=== PATIENT | male | born 1990 | race Native Hawaiian/Other Pacific Islander ===

== ENCOUNTER 2023-04-24 11:19 | Emergency (ER) | payer OTHER ==
[~2023-04-24] VITALS: Ht 185.4 cm; Wt 119.8 kg
[2023-04-24 11:40] VITALS: BP 134/86; TEMP 98.7
[2023-04-27] MEDS ORDERED: CLINDAMYCIN HY150 MG PO (06:36)
== END 2023-04-24 11:40 | disposition home or self-care (01) ==
LOC: ED 11:19
DX: L72.3 Sebaceous cyst (principal)
CPT/HCPCS: 99282

== ENCOUNTER 2023-04-26 21:16 | Emergency (ER) | payer OTHER ==
[~2023-04-26] VITALS: Ht 185.4 cm; Wt 120.2 kg
[2023-04-26 22:32] LABS: PLATELET COUNT 373 K/uL (142-355)
[2023-04-26 23:20] VITALS: BP 134/90; TEMP 99.2
[2023-04-27] MEDS ORDERED: CLINDAMYCIN HY150 MG PO (06:36)
== END 2023-04-26 23:20 | disposition home or self-care (01) ==
LOC: ED 21:16
PROVIDERS: Family Medicine
DX: L72.3 Sebaceous cyst (principal); L02.212 Cutaneous abscess of back [any part, except buttock and flank]; L30.9 Dermatitis, unspecified
CPT/HCPCS: 36415; 85027; 87040; 87070; 87205; 96372; 99283; J1885